=== PATIENT | female | born 1965 | race African-American/Black ===

== ENCOUNTER 2016-06-25 20:55 | Emergency (ER) | payer OTHER ==
[~2016-06-25] VITALS: Ht 172.7 cm; Wt 81.8 kg
[~2016-06-25 20:55] MED LIST: ALBU6.7H IH; GABA-531 PO
[2016-06-25] MEDS ORDERED: AUD NEB (21:06)
[2016-06-25 21:45] VITALS: BP 124/76
[2016-06-25] MEDS ORDERED: IPRATROPIUM BROMIDE 0.5 MG/2.5 ML NEB SOLUTION NEB ONE (21:45)
[2016-06-25] MEDS ORDERED: PredniSONE 20 MG TABLET PO ONE (21:45)
[2016-06-25] MEDS ORDERED: ALBUTEROL SULFATE 2.5 MG/0.5 ML NEB SOLUTION NEB ONE (21:45)
== END 2016-06-25 22:40 | disposition home or self-care (01) ==
LOC: EMS 21:05
DX: J45.901 Unspecified asthma with (acute) exacerbation (principal); F17.210 Nicotine dependence, cigarettes, uncomplicated
CPT/HCPCS: 94640; 99283; J7512; J7613

== ENCOUNTER 2018-10-26 17:41 | Emergency (ER) | payer OTHER ==
[~2018-10-26] VITALS: Ht 172.7 cm; Wt 63.6 kg
[~2018-10-26 17:41] MED LIST changes: -ALBU6.7H IH; +ALBU6.7H9 IH; +AUD NEB; +DSS100 PO; -GABA-531 PO; +HYDR-309 PO
[2018-10-26 18:05] VITALS: BP 138/76
[2018-10-26] MEDS ORDERED: ALPR0.255 PO (18:14)
[2018-10-26] MEDS: IBUPROFEN 600 MG TABLET PO ONE (21:13)
== END 2018-10-26 22:01 | disposition home or self-care (01) ==
LOC: EMS 17:42
DX: M25.562 Pain in left knee (principal); R03.0 Elevated blood-pressure reading, without diagnosis of hypertension; R60.0 Localized edema; M79.89 Other specified soft tissue disorders; J45.909 Unspecified asthma, uncomplicated; Z90.710 Acquired absence of both cervix and uterus
CPT/HCPCS: 29530